=== PATIENT | female | born 1980 | race Caucasian/White ===

== ENCOUNTER 2016-08-30 20:25 | Emergency (ER) | payer OTHER ==
--- NOTE | 2016-09-27 21:25 | ER ---
ADMIT: 08/30/2016 RM/LOC: ER [facility] MR#: [id number] [id number] [address] [place] [address] Emergency Room Report SEX: F AGE: 35 : 1980 DATE: 08/30/2016 A 35-year-old female, comes to the Emergency Department with complaints of tingling over the left leg from the knee down to the ankle in the anterior portion. She states it feels like pins and needles. Of note, she is morbidly obese, and had been wearing high heels and had a dance the night before. She also works standing on the concrete floor for several hours during the day. See T-sheet for history and physical. The patient was diagnosed with neuropathy. Given a Toradol injection in the Emergency Department and a prescription for Toradol. Instructed to follow up this coming week with her primary doctor if no improvement. DIAGNOSIS: Neuropathy. Joseph Helms MD/ gretta JOB #: [id number] CC: Vivek Holm MD, Attending Physician
== END 2016-08-30 23:45 | disposition home or self-care (01) ==
LOC: ER 20:25
DX: G62.9 Polyneuropathy, unspecified (principal); F17.210 Nicotine dependence, cigarettes, uncomplicated; Z88.0 Allergy status to penicillin; Z98.890 Other specified postprocedural states